=== PATIENT | female | born 1995 | race Caucasian/White ===

== ENCOUNTER 2016-11-02 15:39 | Emergency (ER) | payer BC ==
[~2016-11-02] VITALS: Ht 160 cm; Wt 50.0 kg
[2016-11-02 15:53] VITALS: TEMP 39.5; Ht 160 cm; Wt 50.0 kg
[2016-11-02] MEDS ORDERED: SODIUM CHLORIDE 0.9% 1000ML 2,000 ML IV STA (17:02)
[2016-11-02] MEDS ORDERED: ACETAMINOPHEN 500 MG TAB PO STA (17:02)
[2016-11-02] MEDS ORDERED: KETOROLAC TROMETHAMINE 30 MG/ML VIAL IV STA (17:02)
[2016-11-02] MEDS ORDERED: CLIN150C PO (17:06)
[2016-11-02] MEDS ORDERED: ACET-1311 PO (17:07)
[2016-11-02] MEDS ORDERED: DEXAMETHASONE SOD INJ 10 MG/ML VIAL IV ONE (17:15)
[2016-11-02 17:47] LABS: BASO % 0.2 %; BASO ABS # 0.02 K/uL (0-0.2); COMPLETE YES; EOS % 0.1 %; HEMATOCRIT 39.6 % (37-47); IG% 0.3 %; LYMPH % 7.6 %; LYMPH ABS # 0.99 K/uL (1.2-3.4); MEAN CELL VOLUME 85.7 fL (80-100); MEAN CORPUSCULAR HEMOGLOBIN 29.2 pg (25-34); MEAN CORPUSCULAR HGB CONC 34.1 g/dl (32-36); MEAN PLATELET VOLUME 9.3 fL (7.4-10.4); MONO % 6.7 %; NEUT % 85.1 %; PLATELET COUNT 221 K/uL (130-400); RED BLOOD COUNT 4.62 M/uL (4.2-5.4); WHITE BLOOD COUNT 13.06 K/uL (4.8-10.8)
[2016-11-02 17:51] LABS: ISTAT CREATININE 0.6 mg/dl (0.6-1.3); ISTAT HEMOGLOBIN 13.9 g/dl (12.0-16.0); ISTAT IONIZED CALCIUM 1.16 mmol/l (1.12-1.32)
[2016-11-02 18:14] LABS: BUN/CREATININE RATIO 8.3 (10-20); CALCIUM 9.1 mg/dl (8.5-10.1); CREATININE 0.69 mg/dl (0.60-1.20); POTASSIUM 3.6 mmol/L (3.5-5.1)
[2016-11-02] MEDS ORDERED: OPTIRAY 320 IV PRN (18:15)
--- NOTE | 2016-11-02 19:21 | DIAGNOSTIC IMAGING REPORT ---
CT soft tissue neck SOFT TISSUE NECK WITH CLINICAL HISTORY: cant swallow dysphagia TECHNIQUE: Transaxial acquisition with multi axial reformatted images COMPARISON STUDY: None FINDINGS: Considerable soft tissue edematous change of the right and to lesser extent left posterior oral and hypopharyngeal/peritonsillar regions. No evidence for drainable abscess or collection. Mild shift of the airway to the left. Major compromise of the airway lumen is not felt to be present. There is moderate reactive cervical adenopathy bilaterally. Major salivary glands are unremarkable. Glottic and subglottic regions are intact. There is no evidence for subglottic airway compromise. Pulmonary apices are clear. IMPRESSION: 1. Marked generalized soft tissue edematous change of the posterior oral as well as hypopharyngeal regions, most prominently on the right. 2. This includes the peritonsillar regions with moderate airway narrowing of the hypopharynx. 3. No evidence for drainable abscess or collection. 4. Moderate reactive cervical adenopathy throughout both cervical chains. Electronically signed by: Domingo Niño M.D. 11/02/2016 7:20 PM Dictated Date/Time: 11/02/2016 7:16 PM
[2016-11-02] MEDS ORDERED: PRED50TA PO (20:15)
[2016-11-02 20:27] VITALS: BP 114/67; PULSE 78; O2SAT 97
--- NOTE | 2016-11-02 22:04 | EMERGENCY ROOM VISIT NOTE ---
History Report prepared by Zenobia: Betzy Platt Under the Supervision of: Dr. Eleazar Maloney D.O. First contact with patient: 16:28 Chief Complaint: ILLNESS Stated Complaint: SORE THROAT, FEVER, SWOLLEN GLANDS History of Present Illness The patient is a 21 year old female who presents to the Emergency Room with complaints of a persistent illness that began five days ago. She currently rates her discomfort as a 9/10 in severity. The patient states that she developed a fever Monday and a slight sore throat. She states initially alleviate her symptoms with Advil, but states that her symptoms worsened on Monday. The patient states that she has had difficulty swallowing, noting that she has not kept up on her fluid intake. She states that she went to [facility] today and was tested for mono, mumps and strep. The patient states that her strep test came back negative. She denies any history of a tonsillectomy. The patient states that her last normal menstrual period was last week. Pt denies headache, change in vision, chest pain, shortness of breath, nausea, vomiting, diarrhea, pain with urination, vaginal bleeding, vaginal discharge, and melena. Source of History: patient Onset: five days ago Position: other (global) Symptom Intensity: 9/10 Quality: other (illness) Timing: other (persistent) Associated Symptoms: + fevers, + sorethroat Note: Associated Symptoms: difficulty swallowing Review of Systems See HPI for pertinent positives & negatives. A total of 10 systems reviewed and were otherwise negative. Past Medical & Surgical Medical Problems: (1) Bronchitis (2) Pneumonia Surgical Problems: (1) [place] teeth extracted Family History Diabetes mellitus FH: cancer FH: heart disease Hypertension Social History Smoking Status: Never Smoker Smokeless Tobacco Use: No Alcohol Use: occasionally Marital Status: single Occupation Status: [employer] student Current/Historical Medications Scheduled Clindamycin Hcl (Cleocin), 300 MG PO BID Prednisone (Prednisone), 50 MG PO DAILY Miscellaneous Medications Acetaminophen (Tylenol), 650 MG PO Allergies Coded Allergies: Penicillins (Unverified Allergy, Intermediate, HIVES, 11/02/16) Physical Exam Vital Signs Date Time Temp Pulse Resp B/P Pulse Ox O2 Delivery O2 Flow Rate FiO2 11/02/16 20:27 78 14 114/67 97 Room Air 11/02/16 17:41 102 18 123/87 97 Room Air 11/02/16 15:53 39.5 121 20 135/93 98 Room Air Physical Exam GENERAL: Disheveled, slightly ill appearing, alert, well appearing, non-toxic EYE EXAM: normal conjunctiva. OROPHARYNX: Moist mucous membranes, submandibular region is soft, no swelling below tongue. Exudate on bilateral tonsils with mild fullness of the right tonsil slight deviation to the left. NECK: Tender anterior cervical lymphadenopathy, supple, no nuchal rigidity, non- tender. No stridor. LUNGS: Clear to auscultation. Normal chest wall mechanics HEART: no murmurs, S1 normal and S2 normal ABDOMEN: abdomen soft, non-tender, normo-active bowel sounds, no masses, no rebound or guarding. SKIN: no rashes and no bruising UPPER EXTREMITIES: upper extremities are grossly normal. LOWER EXTREMITIES: No pitting edema. NEURO EXAM: Normal sensorium, cranial nerves II-XII grossly intact, normal speech, no gross weakness of arms, no gross weakness of legs. Medical Decision & Procedures ER Provider Diagnostic Interpretation: CT:Per my review, radiologist interpretation. CT soft tissue neck SOFT TISSUE NECK WITH CLINICAL HISTORY: cant swallow dysphagia TECHNIQUE: Transaxial acquisition with multi axial reformatted images COMPARISON STUDY: None FINDINGS: Considerable soft tissue edematous change of the right and to lesser extent left posterior oral and hypopharyngeal/peritonsillar regions. No evidence for drainable abscess or collection. Mild shift of the airway to the left. Major compromise of the airway lumen is not felt to be present. There is moderate reactive cervical adenopathy bilaterally. Major salivary glands are unremarkable. Glottic and subglottic regions are intact. There is no evidence for subglottic airway compromise. Pulmonary apices are clear. IMPRESSION: 1. Marked generalized soft tissue edematous change of the posterior oral as well as hypopharyngeal regions, most prominently on the right. 2. This includes the peritonsillar regions with moderate airway narrowing of the hypopharynx. 3. No evidence for drainable abscess or collection. 4. Moderate reactive cervical adenopathy throughout both cervical chains. Electronically signed by: Domingo Niño M.D. 11/02/2016 7:20 PM Dictated Date/Time: 11/02/2016 7:16 PM Laboratory Results 11/02/16 17:30 Red Blood Count 4.62, Mean Corpuscular Volume 85.7, Mean Corpuscular Hemoglobin 29.2, Mean Corpuscular Hemoglobin Concent 34.1, Mean Platelet Volume 9.3, Neutrophils (%) (Auto) 85.1, Lymphocytes (%) (Auto) 7.6, Monocytes (%) (Auto) 6.7, Eosinophils (%) (Auto) 0.1, Basophils (%) (Auto) 0.2, Neutrophils # (Auto) 11.13, Lymphocytes # (Auto) 0.99, Monocytes # (Auto) 0.87, Eosinophils # (Auto) 0.01, Basophils # (Auto) 0.02 11/02/16 17:30 Test 11/02/16 17:30 11/02/16 17:38 White Blood Count 13.06 K/uL (4.8-10.8) Red Blood Count 4.62 M/uL (4.2-5.4) Hemoglobin 13.5 g/dL (12.0-16.0) Hematocrit 39.6 % (37-47) Mean Corpuscular Volume 85.7 fL (80-100) Mean Corpuscular Hemoglobin 29.2 pg (25-34) Mean Corpuscular Hemoglobin Concent 34.1 g/dl (32-36) Platelet Count 221 K/uL (130-400) Mean Platelet Volume 9.3 fL (7.4-10.4) Neutrophils (%) (Auto) 85.1 % Lymphocytes (%) (Auto) 7.6 % Monocytes (%) (Auto) 6.7 % Eosinophils (%) (Auto) 0.1 % Basophils (%) (Auto) 0.2 % Neutrophils # (Auto) 11.13 K/uL (1.4-6.5) Lymphocytes # (Auto) 0.99 K/uL (1.2-3.4) Monocytes # (Auto) 0.87 K/uL (0.11-0.59) Eosinophils # (Auto) 0.01 K/uL (0-0.5) Basophils # (Auto) 0.02 K/uL (0-0.2) RDW Standard Deviation 38.9 fL (36.4-46.3) RDW Coefficient of Variation 12.4 % (11.5-14.5) Immature Granulocyte % (Auto) 0.3 % Immature Granulocyte # (Auto) 0.04 K/uL (0.00-0.02) Est Creatinine Clear Calc Drug Dose 101.8 ml/min Estimated GFR () 144.2 Estimated GFR (Non- 124.4 BUN/Creatinine Ratio 8.3 (10-20) Calcium Level 9.1 mg/dl (8.5-10.1) Bedside Hemoglobin 13.9 g/dl (12.0-16.0) Bedside Hematocrit 41 % (37-47) Bedside Sodium 139 mEq/L (135-144) Bedside Potassium 3.7 mEq/L (3.3-5.0) Bedside Chloride 100 mEq/L (101-112) Bedside Total CO2 25 mEq/l (24-31) Anion Gap 19.0 mmol/L (16-25) Bedside Blood Urea Nitrogen 4 mg/dl (7-18) Bedside Creatinine 0.6 mg/dl (0.6-1.3) Bedside Glucose (other) 93 mg/dl (70-99) Bedside Ionized Calcium (Lacy) 1.16 mmol/l (1.12-1.32) Laboratory results per my review. Medications Administered Medications (Trade) Dose Ordered Sig/Thelma Route Start Time Stop Time Status Last Admin Dose Admin Acetaminophen 1000 mg 1,000 mg NOW STAT PO 11/02/16 17:02 11/02/16 17:05 DC 11/02/16 17:39 1,000 MG Sodium Chloride (Nss 1000ml) 2,000 ml @ 999 mls/hr Q2H1M STAT IV 11/02/16 17:02 11/02/16 19:02 DC 11/02/16 17:39 999 MLS/HR Ketorolac Tromethamine (Toradol Inj) 30 mg NOW STAT IV 11/02/16 17:02 11/02/16 17:05 DC 11/02/16 17:38 30 MG Dexamethasone Sodium Phosphate (Decadron Inj) 10 mg NOW ONCE IV 11/02/16 17:15 11/02/16 17:16 DC 11/02/16 17:38 10 MG ED Course ED COURSE: Vital signs were reviewed and showed tachycardic, febrile The patients medical record was reviewed The above diagnostic studies were performed and reviewed. ED treatments and interventions as stated above. 1850: The patient was evaluated in room C3. A complete history and physical examination was performed. 1702: Ordered Toradol Inj 30 mg IV, Sodium Chloride 2000 ml @ 999 mls/hr IV, Tylenol Tab 1000 mg PPO. 1715: Ordered Decadron Inj 10 mg IV. 1910: I reevaluated the patient and she is resting comfortably. 1947: I discussed the patients case with Dr. Ngo ENT. He states that the patient can follow up as an outpatient. 1950: I reevaluated the patient and she is resting comfortably. 2019: Upon reevaluation, the patient is [].I discussed my findings with the [ patient] and [] understands and agrees with the treatment plan. Based on the patients age, coexisting illnesses, exam and lab findings the decision to treat as an [inpatient][outpatient] was made. The patient remained stable while under my care. [The patient appeared well at the time of discharge.] [The patient will be evaluated for further management.] Medical Decision Differential diagnosis include Garcia's angina, strep throat, mumps, mono, peritonsillar abscess, retropharyngeal abscess. Patient is a 21-year-old female who presents the ER for trouble swallowing along with a severe sore throat. Vitals are remarkable for tachycardia and fever. Her shots are up-to-date. She was seen at [facility] and tested for mumps and mono per the patient. I did not feel it was prudent to repeat these tests as they had just been done today. Labs were obtained patient was given IV along with pulse normal saline and Toradol and Decadron. CT of the neck shows swelling but no significant airway compromise. She had no stridor. She is able to tolerate liquids. Labs showed a mild leukocytosis. BMP was unremarkable. Patient was updated at bedside. She was discussed with ENT and they will follow her up as an outpatient if needed. Patient was discharged with steroids and instructed to continue her clindamycin as previously prescribed by [facility]. Discussed with Pt concerning signs and symptoms to watch out for. Pt was instructed to follow up with their PCP and discussed with the patient their option to return to the ED at anytime for persistent or worsening symptoms. The appropriate anticipatory guidance and out-patient management, including indications for return to the emergency department, were explained at length to the patient and understood. Consults Time Called: 1939 Consulting Physician: Dr. Ngo ENT Returned Call: 1947 I discussed the patients case with Dr. Ngo, ENT. He states that the patient can follow up as an outpatient. Impression Primary Impression: Pharyngitis Additional Impression: Tonsillitis Scribe Attestation The scribe's documentation has been prepared under my direction and personally reviewed by me in its entirety. I confirm that the note above accurately reflects all work, treatment, procedures, and medical decision making performed by me. Departure Information Dispostion Home / Self-Care Prescriptions Prednisone (PREDNISONE) 50 Mg Tab 50 MG PO DAILY for 4 Days, TAB Prov: Eleazar Maloney, DO 11/02/16 Referrals No Doctor, Assigned (PCP) Forms HOME CARE DOCUMENTATION FORM, IMPORTANT VISIT INFORMATION, WORK / SCHOOL INSTRUCTIONS Patient Instructions ED Strep Pharyngitis Leo, My [facility] Additional Instructions Please follow up with your primary care doctor or if you are a student [facility] services with in the next 24 hours. Any worsening of your symptoms, please return to the ED immediately. This includes persistent fevers greater than 100.4 at the next 2-3 days, worsening trouble swallowing, trouble breathing, or any other concerning signs or symptoms from your standpoint. Please take antibiotics as previously prescribed. Please take the steroids as prescribed. Please follow up with at [phone] from ENT Problem Qualifiers Primary Impression: Pharyngitis Pharyngitis/tonsillitis etiology: unspecified etiology Qualified Codes: J02.9 - Acute pharyngitis, unspecified
== END 2016-11-02 20:30 | disposition home or self-care (01) ==
LOC: C.EDB 15:41 → C.EDC 20:30
DX: J03.90 Acute tonsillitis, unspecified (principal); Z87.01 Personal history of pneumonia (recurrent); Z83.3 Family history of diabetes mellitus; Z82.49 Family history of ischemic heart disease and other diseases of the circulatory system

== ENCOUNTER 2017-04-07 03:08 | Emergency (ER) | payer BC ==
[~2017-04-07] VITALS: Ht 160 cm; Wt 66.7 kg
[~2017-04-07 03:08] MED LIST: ACET-1311 PO; CLIN150C PO
[2017-04-07 03:14] VITALS: TEMP 36.8; Ht 160 cm; Wt 66.7 kg
[2017-04-07 04:09] LABS: BUN/CREATININE RATIO 13.9 (10-20); CALCIUM 8.3 mg/dl (8.5-10.1); CREATININE 0.7 mg/dl (0.60-1.20); POTASSIUM 3.5 mmol/L (3.5-5.1)
[2017-04-07 04:17] LABS: PREG INTERNAL NEGATIVE QC NEG CLEAR BACKGROUND; PREG INTERNAL POSITIVE QC POS CONTROL LINE
--- NOTE | 2017-04-07 06:08 | EMERGENCY ROOM VISIT NOTE ---
History Report prepared by Zenobia: Terri Cordero Under the Supervision of: Dr. Mars Nassar M.D. First contact with patient: 03:14 Chief Complaint: ALCOHOL OVERDOSE Stated Complaint: ALCOHOL OVERDOSE History of Present Illness The patient is a 21 year old female who presents to the Emergency Room with complaints of an episode of alcohol overdose occurring tonight. Per EMS, the patient was drinking with her friends and they took her home. They state that she got changed and crawled into bed, but her friend's felt something was wrong so they called the ambulance. EMS reports that the roommates wouldn't take care of her or be responsible for her. Source of History: EMS Onset: this evening Position: other (global) Quality: other (global) Timing: other (episode) Review of Systems ROS limited secondary to alcohol intoxication. Past Medical & Surgical Medical Problems: (1) Bronchitis (2) Pneumonia Surgical Problems: (1) [place] teeth extracted Family History Diabetes mellitus FH: cancer FH: heart disease Hypertension Social History Smoking Status: Never Smoker Alcohol Use: occasionally Marital Status: single Housing Status: lives with roommate Occupation Status: [employer] student Current/Historical Medications No Active Prescriptions or Reported Meds Allergies Coded Allergies: Penicillins (Unverified Allergy, Intermediate, HIVES, 04/07/17) Physical Exam Vital Signs Date Time Temp Pulse Resp B/P (MAP) Pulse Ox O2 Delivery O2 Flow Rate FiO2 04/07/17 04:38 65 21 99 Room Air 04/07/17 04:08 63 20 95 Room Air 04/07/17 04:01 86/50 04/07/17 03:38 73 13 100 Room Air 04/07/17 03:25 63 04/07/17 03:14 36.8 72 18 123/64 99 Room Air 04/07/17 03:13 123/64 Physical Exam GENERAL: Patient is moderately intoxicated. Somnolent. Awake and answers simple questions. Smells of alcohol. Well appearing and in no acute distress. HEAD: No evidence of Trauma. AT/NC EYES: Injected conjunctiva. Normal EOM. Pupils equal/reactive. ENT: Mucous membranes moist, no nasal congestion, . NECK: No step-offs, no adenopathy, no meningismus, trachea is midline. LUNGS: No dyspnea. Clear to auscultation and equal bilaterally. No wheeze, no rhonchi. HEART: Regular rate and rhythm. No murmurs, rubs, gallops appreciated. ABDOMEN: Soft, nontender, bowel sounds positive, no masses appreciated, no peritonitis. BACK: No midline tenderness, no CVA tenderness EXTREMITIES: Normal motion all extremities, no cyanosis, no edema. NEUROLOGIC: Intoxicated. No acute motor or sensory deficits, no focal weakness , cranial nerves grossly intact. SKIN: No rash, no jaundice, no diaphoresis. Medical Decision & Procedures Laboratory Results 04/07/17 03:34 Test 04/07/17 03:34 Anion Gap 6.0 mmol/L (3-11) Est Creatinine Clear Calc Drug Dose 116.6 ml/min Estimated GFR () 143.5 Estimated GFR (Non- 123.9 BUN/Creatinine Ratio 13.9 (10-20) Calcium Level 8.3 mg/dl (8.5-10.1) Human Chorionic Gonadotropin, Qual NEG (NEG) Ethyl Alcohol mg/dL 281.0 mg/dl (0-3) Laboratory results as reviewed by me. ED Course 0314: The patient was evaluated in room A12B. A complete history and physical exam was performed. 0420: I reevaluated the patient and she was sleeping. Medical Decision Differential: Alcohol Intoxication, Drug Intoxication, Electrolyte Abnormality, Trauma, Intracranial Event, Toxicological, Excited Delirium, Serotonin Syndrome , amongst other pathologies entertained. 21 yr old intoxicated female brought in by EMS after being called to her apartment due to intoxication. Patient with no evidence nor history for trauma. Protecting airway and breathing comfortably throughout ED stay. EtOH positive. Monitored and discharged when awake, alert, oriented and denies any complaints. Impression Primary Impression: Alcohol abuse Additional Impression: Alcohol intoxication Scribe Attestation The scribe's documentation has been prepared under my direction and personally reviewed by me in its entirety. I confirm that the note above accurately reflects all work, treatment, procedures, and medical decision making performed by me. Departure Information Dispostion Home / Self-Care Prescriptions No Active Prescriptions or Reported Meds Referrals No Doctor, Assigned (PCP) Patient Instructions My [facility] Additional Instructions You were evaluated in emergency department for intoxication. This is a sign of Alcohol Abuse and should not be taken lightly. You had a blood alcohol level that was significantly elevated. Over the next 24 hours keep well hydrated and eat light meals. Don't drink any more alcohol. This is important. Please discuss this visit with your Primary Care Provider, [facility] and/or your loved ones. Unless an exceptional circumstance, the Hospital DOES NOT contact anyone DURING your visit, nor is your Protected Medical Information released to anyone without your approval/request. This means we do not contact your Parents, the Police, etc. However, you will likely receive a bill from the Hospital and/or your Insurance company, which will usually be sent to the Primary Policy [place]ell (often one's Parents). Furthermore, as a student, your visit report will likely be sent to [facility] as your primary care provider, unless other Provider listed. If your incident was on campus, or if the Police were involved, they will often contact the University to make them aware of what happened. Often this will result in you being required to take Alcohol Education classes (ie BASICS class) . Please see information given to you at discharge regarding contact for this. If the Police were involved you will likely be cited for public intoxication. Please contact either [facility] Police or the [place] Police for further information. Call 911 or return to Emergency Department if you develop: Passing out, difficulty breathing, many episodes of vomiting, blood in vomit or stool, abdominal pain, fevers, or other severe symptoms. We are always here to help if you feel you need further evaluation or treatment. Problem Qualifiers
[2017-04-07 08:58] VITALS: BP 132/81; PULSE 139; O2SAT 98
== END 2017-04-07 09:19 | disposition home or self-care (01) ==
LOC: EDBD 03:08 → C.EDA 03:09
DX: F10.120 Alcohol abuse with intoxication, uncomplicated (principal); Y90.8 Blood alcohol level of 240 mg/100 ml or more; Z87.01 Personal history of pneumonia (recurrent); Z83.3 Family history of diabetes mellitus; Z80.9 Family history of malignant neoplasm, unspecified; Z82.49 Family history of ischemic heart disease and other diseases of the circulatory system